=== PATIENT | male | born 1970 ===

== ENCOUNTER → 2017-12-22 19:01 | Outpatient (REF) | payer OTHER, SELFPAY ==
[2017-12-22 20:41] LABS: HGB 15.1 g/dL (13.5-17.5); Mean Corp. HGB Concentration 33.6 g/dL (32.0-36.0); Mean Corpuscular Hemoglobin 30.3 pg (27.0-33.0); Mean Corpuscular Volume 90.4 fL (80-95); Mean Platelet Volume 11.8 fL (8.0-11.0); RBC 4.98 m/cumm (4.50-6.00)
[2017-12-22 20:55] LABS: Hemoglobin A1C 5.3 % (4.5-6.2)
[2017-12-22 21:11] LABS: ALT 39 U/L (12-78); AST 19 U/L (15-37); Albumin 4.1 g/dL (3.4-5.0); Alkaline Phosphatase 66 U/L (46-116); Anion Gap 7.3 mmol/L (3-11); BUN 17 mg/dL (7-18); Bilirubin, Total 0.8 mg/dL (0.2-1.0); CO2 27.7 mmol/L (21.0-32.0); CREATININE 0.91 mg/dL (0.70-1.30); Calcium 9.3 mg/dL (8.5-10.1); Chloride 102 mmol/L (98-107); Cholesterol 244 mg/dL (50-200); Glucose 96 mg/dL (70-100); HDL Cholesterol 51 mg/dL (40-60); LDL CHOLESTEROL 179 mg/dL (<100); Potassium 4.2 mmol/L (3.5-5.1); Sodium 137 mmol/L (136-145); TSH (W/Ref FT4) 1.49 uIU/mL (0.358-3.74); Total Protein 7.8 g/dL (6.4-8.2); Triglyceride 113 mg/dL (30-150)
[2017-12-25 15:45] LABS: Testosterone, Free 5.86 ng/dL (4.26-16.4); Testosterone, Total 202 ng/dL (240-950)
== END ==
LOC: NCHCN 19:01
PROVIDERS: PCP Nurse Practitioner; Visit Provider Nurse Practitioner
DX: N52.9 Male erectile dysfunction, unspecified (principal)
CPT/HCPCS: 80053; 80061; 83721; 84402; 84403; 85027; 83036; 84443